=== PATIENT | male | born 1990 | race Two or more races ===

== ENCOUNTER 2023-01-07 12:48 | Emergency (ER) | payer MEDICAID ==
[~2023-01-07] VITALS: Ht 175.3 cm; Wt 85.0 kg
[2023-01-07] MEDS ORDERED: ACETAMINOPHEN 325MG TABLET PO ONE (15:15)
[2023-01-07] MEDS ORDERED: IBUPROFEN 400MG TABLET PO ONE (15:15)
[2023-01-07] MEDS ORDERED: CEPH500C2 MT (15:56)
[2023-01-07 15:58] VITALS: BP 148/83
[2023-01-07] MEDS ORDERED: NAPR-681 MT (16:00)
[2023-01-07] MEDS ORDERED: TETANUS, DIPHTHERIA, PERTUSSIS VAC/PF 0.5ML (>10YR OLD) IM ONE (16:00)
== END 2023-01-07 16:14 | disposition home or self-care (01) ==
LOC: ER 12:48
DX: S60.450A Superficial foreign body of right index finger, initial encounter (principal); W34.09XA Accidental discharge from other specified firearms, initial encounter; Y93.89 Activity, other specified; Y92.89 Other specified places as the place of occurrence of the external cause; Y99.8 Other external cause status
CPT/HCPCS: 29130; 73140; 90471; 90715; 99283